=== PATIENT | male | born 1965 ===

== ENCOUNTER 2018-09-22 17:40 | Inpatient (IN) | payer OTHER ==
[2018-09-22 18:49] LABS: BASO # 0.1 K/uL (0.0-0.2); BASO % 1.1 % (0.0-2.0); EOS % 0.2 % (0.0-4.0); HEMOGLOBIN 12.8 g/dL (12.0-18.0); LYMPH # 1.2 K/uL (1.0-4.3); LYMPH % 24.8 % (20.0-40.0); MEAN CELL VOLUME 88.7 fl (80.0-94.0); MEAN CORPUSCULAR HEMOGLOBIN 30.1 pg (27.0-31.0); MEAN PLATELET VOLUME 7.1 fl (7.2-11.7); MONO # 0.4 K/uL (0.0-0.8); MONO % 7.7 % (0.0-10.0); NEUT # 3.2 K/uL (1.8-7.0); NEUT % 66.2 % (50.0-75.0); NRBC % 0.2 % (0.0-0.0); RBC 4.24 Mil/uL (4.40-5.90); WHITE BLOOD COUNT 4.8 K/uL (4.8-10.8)
[2018-09-22 19:16] LABS: ACETAMINOPHEN < 10.0 ug/ml (10.0-30.0); SALICYLATE < 1.0 mg/dl
[2018-09-22 19:18] LABS: ALB/GLOB RATIO 1.1 (1.0-2.1); ALBUMIN 4.1 g/dL (3.5-5.0); ALT/SGPT 64 U/L (21-72); AST/SGOT 68 U/L (17-59); BLOOD UREA NITROGEN 7 mg/dl (9-20); CALCIUM 8.9 mg/dL (8.4-10.2); GFR NON-AFRICAN AMERICAN > 60
[2018-09-22] MEDS ORDERED: Sodium Chloride 0.9% 1,000 ML IV SCH (19:30)
--- NOTE | 2018-09-22 19:56 | ED PDOC ---
HPI: Psych/Substance Abuse Time Seen by Provider: 09/22/18 17:56 Chief Complaint (Nursing): Psychiatric Evaluation Chief Complaint (Provider): Psychiatric Evaluation ED Caveat: Intoxicated History Per: Patient, EMS History/Exam Limitations: intoxication Onset/Duration Of Symptoms: Hrs Current Symptoms Are (Timing): Still Present Additional Complaint(s): Patient is a 53 y/o male with a PMHx of depression who was brought in by EMS for a suicidal attempt. EMS reported according to the family patient took four unknown diuretic pills and drank a lot. Patient states he has been depressed since his left him. Patient states he drank a lot today. Patient noted he takes Trazodone for his depression. Pt reports doing all this to kill himself. Patient is a poor historian due to intoxication. PCP: None Provided Past Medical History Reviewed: Historical Data, Nursing Documentation, Vital Signs Vital Signs: Last Vital Signs Temp 98.8 F 09/22/18 17:43 Pulse 109 H 09/22/18 17:43 Resp 16 09/22/18 17:43 BP 124/76 09/22/18 17:43 Pulse Ox 96 09/22/18 17:43 - Medical History PMH: Depression Denies: Diabetes, Hepatitis, HIV, HTN, Seizures, Sexually Transmitted Disease - Surgical History Surgical History: No Surg Hx - Family History Family History: States: Unknown Family Hx - Social History Alcohol: > 2 Drinks/Day - Allergies Allergies/Adverse Reactions: Allergies Allergy/AdvReac Type Severity Reaction Status Date / Time No Known Allergies Allergy Verified 09/07/17 12:14 Review of Systems ROS Statement: Except As Marked, All Systems Reviewed And Found Negative (poor h istorian due to intoxication) Psych: Positive for: Suicidal ideation. Negative for: Other (homicidal ideation) Physical Exam - Reviewed Nursing Documentation Reviewed: Yes Vital Signs Reviewed: Yes - Physical Exam Comments: GENERAL APPEARANCE: Patient is drowsy and intoxicated; oriented to person. SKIN: Warm, dry; (-) cyanosis HEAD: (-) scalp swelling, (-) scalp tenderness. EYES: (-) conjunctival pallor, (-) scleral icterus, (-) nystagmus. ENMT: Mucous membranes moist. Airway patent: (-) stridor. NECK: (-) tenderness, (-) stiffness, (-) lymphadenopathy. HEART AND CARDIOVASCULAR: (-) irregularity; (-) murmur, (-) gallop. CHEST AND RESPIRATORY: (-) rales, (-) rhonchi, (-) wheezes; breath sounds equal. ABDOMEN: Soft, (-) distention, (-) tenderness, (-) guarding. NEURO AND PSYCH: unable to fully assess patient Affect: responsive to verbal stimuli. flat dumper: Intact. Pupils equal and reactive; EOMI; (-) facial asymmetry; tongue and uvula midline. Strength and DTRs symmetric. - Laboratory Results Result Diagrams: 09/22/18 18:41 09/22/18 18:41 Lab Results: Total Bilirubin 0.5 mg/dl (0.2-1.3) 09/22/18 18:41 AST 68 U/L (17-59) H D 09/22/18 18:41 ALT 64 U/L (21-72) 09/22/18 18:41 Alkaline Phosphatase 76 U/L (38-126) 09/22/18 18:41 Total Protein 7.9 G/DL (6.3-8.2) 09/22/18 18:41 Albumin 4.1 g/dL (3.5-5.0) 09/22/18 18:41 Globulin 3.8 gm/dL (2.2-3.9) 09/22/18 18:41 Albumin/Globulin Ratio 1.1 (1.0-2.1) 09/22/18 18:41 - ECG ECG Rhythm: Positive for: Normal QRS, Normal ST Segment, Sinus Rhythm. Negative for: ST/T Changes (acute) Rate: 74 O2 Sat by Pulse Oximetry: 96 (RA) Pulse Ox Interpretation: Normal Medical Decision Making Medical Decision Making: Time: 1805 Impression: Depression and Suicidal Ideation Plan: EKG Acetaminophen Alcohol Serum (x2) CMP Drug Screen, Urine Salicylate CBC Glucose, POC IV Fluids Prescription Clerk Lenses IV Insertion 1:1 Observation Glucose, Blood, POC UA Time: [address] Garcia of poison control. Will continue cardiac monitoring. Will redo EKG. Continue IV fluids. If patient is chronic alcoholic will consider reevaluation. Patient will be prescribed Thiamine and Vitamins. Currently patient still appears drowsy and is responsive to verbal stimuli. Time: 1949 Patient's alcohol level is less than 10. Does not match presentation. Will redraw. Time: 2039 Patient's repeat alcohol level is less than 10. Pending urine and crisis evaluation. 21:45 on re eval pt is awake and alert, watching TV, ambulated to bathroom, unable to urinate, given water to drink, tolerating well, pt continues to state he drank a lot today, he also adds he did cocaine and morphine that he got from the streets, he is oriented to person and time 23:20 case endorsed to GRIFFIN Estrada, pending crisis eval and dispo Scribe Attestation: Documented by Renaldo Chin, acting as a scribe for Amor Vasquez PA-C Provider Scribe Attestation: All medical record entries made by the Scribe were at my direction and personally dictated by me. I have reviewed the chart and agree that the record accurately reflects my personal performance of the history, physical exam, medical decision making, and the department course for this patient. I have also personally directed, reviewed, and agree with the discharge instructions and disposition. Disposition - Clinical Impression Clinical Impression: Depression - Patient ED Disposition Is Patient to be Admitted: Transfer of Care (case endorsed to GRIFFIN Estrada, pending crisis eval and dispo) - Disposition Disposition: Transfer of Care (case endorsed to GRIFFIN Estrada, pending crisis eval and dispo) Disposition Time: 23:23 Condition: STABLE Forms: [employer] Connect ([place]) - POA Present On Arrival: None
[2018-09-22 22:51] LABS: URINE AMORPHOUS SEDIMENT OCC /ul (<OCC); URINE BACTERIA OCC (<OCC); URINE BILIRUBIN NEGATIVE (NEGATIVE); URINE BLOOD NEGATIVE (NEGATIVE); URINE CLARITY CLOUDY (Clear); URINE COLOR YELLOW (YELLOW); URINE GLUCOSE (UA) NEG (NEGATIVE); URINE LEUKOCYTE ESTERASE NEG Leu/uL (Negative); URINE PROTEIN NEGATIVE (NEGATIVE); URINE UROBILINOGEN 0.2-1.0 mg/dL (0.2-1.0)
[2018-09-22 23:08] LABS: OPIATES, UR NEGATIVE (NEGATIVE)
[2018-09-22 23:16] LABS: BARBITURATES, UR NEGATIVE (NEGATIVE); BENZODIAZEPINES, UR POSITIVE (NEGATIVE); PHENCYCLIDINE, UR NEGATIVE (NEGATIVE)
--- NOTE | 2018-09-23 00:44 | ED PDOC ---
- Laboratory Results Result Diagrams: 09/22/18 18:41 09/22/18 18:41 Lab Results: Total Bilirubin 0.5 mg/dl (0.2-1.3) 09/22/18 18:41 AST 68 U/L (17-59) H D 09/22/18 18:41 ALT 64 U/L (21-72) 09/22/18 18:41 Alkaline Phosphatase 76 U/L (38-126) 09/22/18 18:41 Total Protein 7.9 G/DL (6.3-8.2) 09/22/18 18:41 Albumin 4.1 g/dL (3.5-5.0) 09/22/18 18:41 Globulin 3.8 gm/dL (2.2-3.9) 09/22/18 18:41 Albumin/Globulin Ratio 1.1 (1.0-2.1) 09/22/18 18:41 Urine Color Yellow (YELLOW) 09/22/18 22:41 Urine Clarity Cloudy (Clear) 09/22/18 22:41 Urine pH 7.0 (5.0-8.0) 09/22/18 22:41 Ur Specific [place] 1.013 (1.003-1.030) 09/22/18 22:41 Urine Protein Negative mg/dL (NEGATIVE) 09/22/18 22:41 Urine Glucose (UA) Neg mg/dL (NEGATIVE) 09/22/18 22:41 Urine Ketones 20 mg/dL (NEGATIVE) 09/22/18 22:41 Urine Blood Negative (NEGATIVE) 09/22/18 22:41 Urine Nitrate Negative (NEGATIVE) 09/22/18 22:41 Urine Bilirubin Negative (NEGATIVE) 09/22/18 22:41 Urine Urobilinogen 0.2-1.0 mg/dL (0.2-1.0) 09/22/18 22:41 Ur Leukocyte Esterase Neg Esequiel/uL (Negative) 09/22/18 22:41 Urine RBC (Auto) 2 /hpf (0-3) 09/22/18 22:41 Urine Microscopic WBC 4 /hpf (0-5) 09/22/18 22:41 Amorphous Sediment Occ /ul (<OCC) H 09/22/18 22:41 Urine Bacteria Occ (<OCC) H 09/22/18 22:41 - ECG O2 Sat by Pulse Oximetry: 96 (RA) - Progress ED Course And Treament: Case endorsed to teletypewriter operator from Jennifer Eaton PA-C pending crisis eval 1:00 Patient awake, alert, oriented x3. Resting comfortably. Vitals stable on monitor 2:30 Patient awake, alert, oriented x3. Resting comfortably. 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 Negron patient to be admitted Medical Decision Making Medical Decision Making: Patient medically stable for psych admission Disposition - Clinical Impression Clinical Impression: Depression - POA Present On Arrival: None - Disposition Disposition: Admitted as In-Patient Disposition Time: 02:45 Condition: STABLE
[2018-09-23] MEDS ORDERED: DiphenhydrAMINE 50 mg/ml Inj IM PRN (05:26)
[2018-09-23] MEDS ORDERED: Magnesium Hydroxide Susp 30 ml UD PO PRN (05:26)
[2018-09-23] MEDS ORDERED: Alum-Mag Hydrox-Simethicone Susp (30 mL) PO PRN (05:26)
--- NOTE | 2018-09-23 05:47 | PCM.BM ---
<Obinna Soria - Last Filed: 09/23/18 05:45> Treatment Plan Problems - Problems identified on initial assessmt Self Harm Date Initiated: 09/23/18 Time Initiated: 05:45 Assessment reference: NA Status: Active Altered Sleep Patterns Date Initiated: 09/23/18 Time Initiated: 05:45 Assessment reference: NA Status: Active Ineffective Coping Date Initiated: 09/23/18 Time Initiated: 05:46 Assessment reference: NA Status: Active Treatment assets and liabiliti Patient Assests: cooperative, ADL independent, physically healthy, good support system, negotiates basic needs, cognitively intact Patient Liabilities: live alone, financial problems, poor support system, language/speech <Ashlie Sanchez - Last Filed: 09/23/18 10:49> - Diagnosis (1) Alcohol abuse Status: Acute Interventions: start antidepressant/ remeron 09/23/18 10:51 (2) Depression Status: Acute Interventions: motivational therapy, referral to rehab 09/23/18 10:51 <Viry Chaudhary - Last Filed: 09/29/18 15:07> Treatment assets and liabiliti Patient Assests: adapts well, cooperative, educated (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 ), insightful, motivated, resourceful, self-reliant, ADL independent, good support system (Pt. reports having a circumstantially supportive relationship with sister who resides in [place] and with who pt. has frequent communication with. Pt. reports majority of family/friends reside out of state. Pt. reports having a friend in the community who he can rely on. ), good past tx response (Pt. maintained sobriety for 20+ years prior to relapse.), good interpersonal skills Patient Liabilities: live alone, financial problems (t. reports currently being unemployed secondary to decompensated mental health and relapse.), relationship conflicts (Pt. reports being x2 years and having had little to no communication with children since.), substance abuse (Pt. reports significant hx of ETOH/marijuana abuse since age 18. Pt. reports relapsing 2 years ago (following divorce) after maintaining sobriety for 20+ years. Pt. reports completing detox 1 year ago. Pt. reports involvement in 12 step program.) Family Contact Family involvement: Famliy/SO not involved Family contact: Family has been contacted by patient, Patient declines to allow family contact at present - Goals for Treatment Patient goals for treatment: Patient to continue stabilization on 3NP through medication management and group/supportive therapy to address sxs of depression as exhibited by restlessness, feelings of hopelessness and worthlessness, and eliminate SI. Patient to be encouraged to attend groups regularly to promote self-awareness, sobriety, and improve insight, compliance, coping skills and self-esteem. Patient to be provided with referral for appropriate level of aftercare to reduce risk of future hospitalizations and ensure safety in the community. Discharge/Continuing Care - Education Needs Education Needs: Patient Medication, Patient Diagnosis/Disease Process, Patient Coping Skills, Patient Community resources, Patient Aftercare Safety Plan - Discharge Discharge Criteria: Tolerates medication w/o severe side effects, Free of Suicidal thoughts, Normal sleep pattern, Ability to care for self, No longer exhibiting s/s of withdrawal Discharge to:: Home, Other ([facility]12 Step Program) - Treatment Team Participation Patient/Family/SO Statement: 09/29/18 15:07 Patient attended tx team this morning to discuss progress on 3NP and anticipated discharge of 09/29. Pt. presented with significantly brighter affect than upon admission. Pt. presented as future-oriented and discharge focused. Pt. expressed motivation for tx and intentions to adhere to tx team recommendations that pt. complete 90 meetings in 90 days to strengthen foundation within 12 step program to assist with maintaining sobriety. Pt. reported feelings completely different than upon admission. Pt. reported improvement in depression as exhibited by decrease in social withdrawal, elimination of SI, and increase in energy/motivation/ hope for the future. Pt. identified abundance of family support as source of encouragement. No harmful bxs noted. Discussed with Family/SO: No Was Patient/Family/SO present at Treatment Team Meeting: Yes
--- NOTE | 2018-09-23 08:13 | CARD ---
APPROVED REPORT Date of service: 09/22/2018 EKG Measurement Heart [id number] <Conclusion> Normal sinus rhythm Normal ECG
--- NOTE | 2018-09-23 13:14 | PCM.PSYCH ---
Initial Psychiatric Evaluation - Initial Psychiatric Evaluation Type of Admission: Voluntary Legal Status: Capacity Chief Complaint (in patient's own words): I have nothing to live for History of Present Illness and Precipitating Events: pt is 53 ys old male with previous diagnosis of depression and alcohol dependence brought to ER by EMS after suicidal attempt by overdose on alcohol and robitussin pt reported has been increasingly depressed for past two years due to going through divorce and not being able to see his children, pt relapsed on alcohol after 20ys of abstinence using daily which resulted in loosing his job two months ago, reported feeling more depressed due to financial difficulties and lack of social support, on the day he presented to ER pt reported feeling his life is worthless and attempted suicide by overdose on OTC medications with alcohol pt reports poor sleep with early insomnia, poor appetite, increased anxiety, feeling hopeless and helpless, continues to have passive suicidal ideation without active plan on the unit , denied perceptual disturbances Current Medications: Active Medications Generic Name Dose Route Start Last Admin Trade Name Freq PRN Reason Stop Dose Admin Acetaminophen 650 mg 09/23/18 05:26 09/23/18 08:37 Tylenol 325mg Tab PO 650 mg Q4 PRN Administration pain level 4-7 Al Hydrox/Mg Hydrox/Simethicone 30 ml 09/23/18 05:26 Maalox Plus 30 Ml PO Q4 PRN Dyspepsia Chlordiazepoxide 10 mg 09/23/18 13:00 09/23/18 12:42 Librium PO 10 mg TID TAMI Administration Diphenhydramine HCl 50 mg 09/23/18 05:26 Benadryl IM Q6 PRN Extrapyramidal S/S Unable PO Diphenhydramine HCl 50 mg 09/23/18 05:26 Benadryl PO Q6 PRN Extrapyramidal Symptoms Diphenhydramine HCl 50 mg 09/23/18 05:29 Benadryl PO HS PRN Sleep Gabapentin 100 mg 09/23/18 13:00 09/23/18 12:42 Neurontin PO 100 mg TID TAMI Administration Haloperidol 5 mg 09/23/18 05:26 Haldol PO Q4 PRN Agitation Haloperidol Lactate 5 mg 09/23/18 05:26 Haldol IM Q4 PRN Agitation, Unable to Take PO Ibuprofen 600 mg 09/23/18 12:52 Motrin Tab PO Q8 PRN Pain, moderate (4-7) Lorazepam 2 mg 09/23/18 05:26 Ativan IM Q6H PRN Anxiety/Agitation,Unable PO Lorazepam 1 mg 09/23/18 05:26 09/23/18 10:59 Ativan PO 1 mg Q6H PRN Administration Anxiety/Agitation Magnesium Hydroxide 30 ml 09/23/18 05:26 Milk Of Magnesia PO HS PRN Constipation Mirtazapine 7.5 mg 09/23/18 22:00 Remeron PO HS TAMI Past Psychiatric History - Past Psychiatric History Explanation of prior treatment: hx of detox and one hospitalization at [facility] pt non compliant History of ETOH/Drug Use: hx of alcohol and cannabis abuse History of Family Illness: uncle hx of schizophrenia Pertinent Medical Hx (Current Medical&Sleep Prob, Allergies): Allergies Allergy/AdvReac Type Severity Reaction Status Date / Time No Known Allergies Allergy Verified 09/07/17 12:14 Mental Status Examination - Personal Presentation Personal Presentation: Looks older than stated age - Affect Affect: Constricted, Depressed - Motor Activity Motor Activity: Psychomotor Retardation - Reliability in Providing Information Reliability in Providing Information: Fair - Speech Speech: Relevant - Mood Mood: Depressed, Anxious - Formal Thought Process Formal Thought Process: Circumstantial - Obsessions/Compulsions Obsessions: No Compulsions: No - Cognitive Functions Orientation: Person, Place, Situation Sensorium: Alert Attention/Concentration: Attentive Abstract Thinking: [place] Judgement: Imparied, as evidence by: Poor judgement, Imparied, as evidence by: Lack of insight into illness - Risk Risk: Suicidal, Withdrawal, Diminished functioning - Strength & Assets Inventory Strength & Assets Inventory: Employment history - Limitations Additional comments: poor social support DSM 5 DX - DSM 5 DSM 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
--- NOTE | 2018-09-23 15:15 | CP.PCM.CON ---
History of Present Illness - History of Present Illness History of Present Illness: Reason for consult: per hospital protocol HPI: 53 year old male with PMH depression admitted for SI attempt by overdose with alcohol. Patient is stable, has no complaints at this time. ROS: per HPI all other systems reviewed and negative Past Patient History - Past Social History Alcohol: > 2 Drinks/Day - CARDIAC Hx Cardiac Disorders: No Hx Hypertension: No - PULMONARY Hx Respiratory Disorders: No Hx Tuberculosis: No - NEUROLOGICAL Hx Neurological Disorder: No HX Cerebrovascular Accident: No Hx Seizures: No - HEENT Hx HEENT Problems: No - RENAL Hx Chronic Kidney Disease: No - ENDOCRINE/METABOLIC Hx Endocrine Disorders: No - HEMATOLOGICAL/ONCOLOGICAL Hx Cancer: No Hx Human Immunodeficiency Virus (HIV): No - INTEGUMENTARY Hx Dermatological Problems: No - MUSCULOSKELETAL/RHEUMATOLOGICAL Other/Comment: hx. of back surgery and bilateral knee surgery - GASTROINTESTINAL Hx Gastrointestinal Disorders: No - GENITOURINARY/GYNECOLOGICAL Hx Genitourinary Disorders: No Hx Sexually Transmitted Disorders: No - PSYCHIATRIC Hx Anxiety: Yes Hx Depression: Yes - SURGICAL HISTORY Hx Surgeries: (Denies) Hx Appendectomy: Yes (2 weeks ago) - ANESTHESIA Hx Anesthesia: Yes Hx Anesthesia Reactions: No Has any member of the family had a problem w/ anesthesia?: No Meds Allergies/Adverse Reactions: Allergies Allergy/AdvReac Type Severity Reaction Status Date / Time No Known Allergies Allergy Verified 09/07/17 12:14 - Medications Medications: Current Medications Acetaminophen (Tylenol 325mg Tab) 650 mg PO Q4 PRN PRN Reason: pain level 4-7 Last Admin: 09/23/18 08:37 Dose: 650 mg Al Hydrox/Mg Hydrox/Simethicone (Maalox Plus 30 Ml) 30 ml PO Q4 PRN PRN Reason: Dyspepsia Last Admin: 09/23/18 14:44 Dose: 30 ml Chlordiazepoxide (Librium) 10 mg PO TID TAMI Last Admin: 09/23/18 12:42 Dose: 10 mg Diphenhydramine HCl (Benadryl) 50 mg IM Q6 PRN PRN Reason: Extrapyramidal S/S Unable PO Diphenhydramine HCl (Benadryl) 50 mg PO Q6 PRN PRN Reason: Extrapyramidal Symptoms Diphenhydramine HCl (Benadryl) 50 mg PO HS PRN PRN Reason: Sleep Gabapentin (Neurontin) 100 mg PO TID [facility] Last Admin: 09/23/18 12:42 Dose: 100 mg Haloperidol (Haldol) 5 mg PO Q4 PRN PRN Reason: Agitation Haloperidol Lactate (Haldol) 5 mg IM Q4 PRN PRN Reason: Agitation, Unable to Take PO Ibuprofen (Motrin Tab) 600 mg PO Q8 PRN PRN Reason: Pain, moderate (4-7) Lorazepam (Ativan) 2 mg IM Q6H PRN PRN Reason: Anxiety/Agitation,Unable PO Lorazepam (Ativan) 1 mg PO Q6H PRN PRN Reason: Anxiety/Agitation Last Admin: 09/23/18 10:59 Dose: 1 mg Magnesium Hydroxide (Milk Of Magnesia) 30 ml PO HS PRN PRN Reason: Constipation Mirtazapine (Remeron) 7.5 mg PO HS TAMI Physical Exam - Constitutional Additional comments: Vitals Reviewed GEN: WDWN, alert, cooperative HEENT: NCAT, PERRL, EOMI HEART: RRR, +S1S2, NO MRG LUNG: CTAB, NO WRR ABD: soft, NT, ND, No HSM, No masses EXT: normal pedal pulses NEURO: awake, alert SKIN: warm, dry PSYCH: normal mood, normal affect Results - Vital Signs Recent Vital Signs: Last Vital Signs Temp 97.5 F L 09/23/18 09:21 Pulse 74 09/23/18 09:21 Resp 18 09/23/18 09:21 BP 123/87 09/23/18 09:21 Pulse Ox 98 09/23/18 05:15 - Labs Result Diagrams: 09/22/18 18:41 09/22/18 18:41 Labs: Laboratory Results - last 24 hr 09/22/18 09/22/18 09/22/18 18:41 18:41 18:41 WBC 4.8 RBC 4.24 L Hgb 12.8 D Hct 37.6 MCV 88.7 D MCH 30.1 MCHC 34.0 RDW 17.0 H Plt Count 410 H D MPV 7.1 L Neut % (Auto) 66.2 Lymph % (Auto) 24.8 [place] % (Auto) 7.7 Eos % (Auto) 0.2 Baso % (Auto) 1.1 Neut # (Auto) 3.2 Lymph # (Auto) 1.2 [place] # (Auto) 0.4 Eos # (Auto) 0.0 Baso # (Auto) 0.1 Sodium 142 Potassium 3.5 L Chloride 104 Carbon Dioxide 26 Anion Gap 16 BUN 7 L Creatinine 0.7 L Est GFR ( Amer) > 60 Est GFR (Non-Af Amer) > 60 POC Glucose (mg/dL) Random Glucose 110 Calcium 8.9 Total Bilirubin 0.5 AST 68 H D ALT 64 Alkaline Phosphatase 76 Total Protein 7.9 Albumin 4.1 Globulin 3.8 Albumin/Globulin Ratio 1.1 Urine Color Urine Clarity Urine pH Ur Specific [place] Urine Protein Urine Glucose (UA) Urine Ketones Urine Blood Urine Nitrate Urine Bilirubin Urine Urobilinogen Ur Leukocyte Esterase Urine RBC (Auto) Urine Microscopic WBC Amorphous Sediment Urine Bacteria Salicylates < 1.0 Urine Opiates Screen Urine Methadone Screen Acetaminophen < 10.0 L Ur Barbiturates Screen Ur Phencyclidine Scrn Ur Amphetamines Screen U Benzodiazepines Scrn U Oth Cocaine Metabols U Cannabinoids Screen Alcohol, Quantitative < 10 09/22/18 09/22/18 09/22/18 18:46 19:54 22:41 WBC RBC Hgb Hct MCV MCH MCHC RDW Plt Count MPV Neut % (Auto) Lymph % (Auto) [place] % (Auto) Eos % (Auto) Baso % (Auto) Neut # (Auto) Lymph # (Auto) [place] # (Auto) Eos # (Auto) Baso # (Auto) Sodium Potassium Chloride Carbon Dioxide Anion Gap BUN Creatinine Est GFR ( Amer) Est GFR (Non-Af Amer) POC Glucose (mg/dL) 112 H Random Glucose Calcium Total Bilirubin AST ALT Alkaline Phosphatase Total Protein Albumin Globulin Albumin/Globulin Ratio Urine Color Urine Clarity Urine pH Ur Specific [place] Urine Protein Urine Glucose (UA) Urine Ketones Urine Blood Urine Nitrate Urine Bilirubin Urine Urobilinogen Ur Leukocyte Esterase Urine RBC (Auto) Urine Microscopic WBC Amorphous Sediment Urine Bacteria Salicylates Urine Opiates Screen Negative Urine Methadone Screen Negative Acetaminophen Ur Barbiturates Screen Negative Ur Phencyclidine Scrn Negative Ur Amphetamines Screen Negative U Benzodiazepines Scrn Positive U Oth Cocaine Metabols Negative U Cannabinoids Screen Negative Alcohol, Quantitative < 10 09/22/18 22:41 WBC RBC Hgb Hct MCV MCH MCHC RDW Plt Count MPV Neut % (Auto) Lymph % (Auto) [place] % (Auto) Eos % (Auto) Baso % (Auto) Neut # (Auto) Lymph # (Auto) [place] # (Auto) Eos # (Auto) Baso # (Auto) Sodium Potassium Chloride Carbon Dioxide Anion Gap BUN Creatinine Est GFR ( Amer) Est GFR (Non-Af Amer) POC Glucose (mg/dL) Random Glucose Calcium Total Bilirubin AST ALT Alkaline Phosphatase Total Protein Albumin Globulin Albumin/Globulin Ratio Urine Color Yellow Urine Clarity Cloudy Urine pH 7.0 Ur Specific [place] 1.013 Urine Protein Negative Urine Glucose (UA) Neg Urine Ketones 20 Urine Blood Negative Urine Nitrate Negative Urine Bilirubin Negative Urine Urobilinogen 0.2-1.0 Ur Leukocyte Esterase Neg Urine RBC (Auto) 2 Urine Microscopic WBC 4 Amorphous Sediment Occ H Urine Bacteria Occ H Salicylates Urine Opiates Screen Urine Methadone Screen Acetaminophen Ur Barbiturates Screen Ur Phencyclidine Scrn Ur Amphetamines Screen U Benzodiazepines Scrn U Oth Cocaine Metabols U Cannabinoids Screen Alcohol, Quantitative Assessment & Plan - Assessment and Plan (Free Text) Plan: 53 year old male with PMH depression admitted for SI attempt by overdose with alcohol. Patient is stable, has no complaints at this time. Depression management per psych
--- NOTE | 2018-09-24 18:37 | PCM.PYCHPN ---
Psychiatric Progress Note - Psychiatric Progress Note Patient seen today, length of contact: chart reviewed case discussed with team Patient Chief Complaint: was feeling nervous had been drinking feeling depressed -reported had been sober for 20 years, recent beginning of divorce precedings. staff report adherent with medications. pt denies s/s etoh w/d. Problems Identified/Issues Discussed: alteration in mood alteration in coping alteration in self care alteration in safety Medical Problems: per chart Diagnostic Results: per psychiatry per medicine per nursing per social work per recreational therapy DSM 5 Symptoms Update: denies s/s etoh w/d some improvement mood Medication Change: Yes (decreased librium to 10mg po bid) Medical Record Reviewed: Yes Consults ordered or reviewed: pt seen by hospitalist Mental Status Examination - Cognitive Function Orientation: Person, Place, Situation Attention: WNL Concentration: WNL Association: WN Fund of Knowledge: [facility] Decription of patient's judgement and insights: impaired - Mood Mood: Depressed, Anxious Additional comments: somewhat less - Affect Affect: Constricted, Depressed - Formal Thought Process Formal Thought Process: Circumstantial - Homicidal Ideation Homicidal Ideation: No Goal/Treatment Plan - Goal/Treatment Plan Progress Toward Problem(s) and Goals/Treatment Plan: inpt mileu vital signs and clinical assessment per protocol and per clinical status decrease librium to 10mg po bid (etoh taper to prevent w/d etoh) will increase mirtazepine to 15mg po hs (therapeutic dose ) adjust other medications per clinical status discharge planning in progress Estimated Date of D/C: 10/08/18 - Smoking Cessation Smoking Cessation Initiated: No Reason for not providing: defers
--- NOTE | 2018-09-25 10:08 | PCM.PYCHPN ---
Psychiatric Progress Note - Psychiatric Progress Note Patient seen today, length of contact: Pt evaluated, case discussed w/ team, chart reviewed Patient Chief Complaint: Depression Problems Identified/Issues Discussed: Patient continues to report feeling depressed w/ sleep disturbances. He was tearful when discussing his feeling of hopelessness, divorce and lack of a relationship with his children. We discussed his recent relapse on alcohol. No current signs/symptoms of ETOH withdrawal. He denies acute suicidal ideation/plan/intent. Medication Change: Yes (Taper Librium) Medical Record Reviewed: Yes Consults ordered or reviewed: Medicine consult Mental Status Examination - Cognitive Function Orientation: Person, Place, Situation, Time Memory: Intact Attention: WNL Concentration: WNL Association: WNL Fund of Knowledge: WN Decription of patient's judgement and insights: Improving I/J - Mood Mood: Depressed, Anxious - Affect Affect: Constricted, Depressed - Speech Speech: Appropriate - Formal Thought Process Formal Thought Process: No Impairment Psychotic Thoughts and Behaviors: No AH/VH/paranoia/delusions - Suicidal Ideation Suicidal Ideation: No - Homicidal Ideation Homicidal Ideation: No Goal/Treatment Plan - Goal/Treatment Plan Need for Continued Stay: Remain at risks for inpatient hospitalization, Severe depression anxiety Progress Toward Problem(s) and Goals/Treatment Plan: Major Depressive Disorder; Alcohol Use Disorder -Continue Remeron -Taper Librium daily; will continue to monitor for signs/symptoms of ETOH withdrawal -Medicine consult -Individual and group therapy -Psychoeducation -Disposition planning
--- NOTE | 2018-09-26 08:35 | PCM.PYCHPN ---
Psychiatric Progress Note - Psychiatric Progress Note Patient seen today, length of contact: Pt evaluated, case discussed w/ team, chart reviewed Patient Chief Complaint: Depression Problems Identified/Issues Discussed: Patient continues to report feeling depressed and anxious w/ sleep disturbances. No current signs/symptoms of ETOH withdrawal. He denies acute suicidal ideation/plan/intent. Medication Change: Yes (Taper Librium) Medical Record Reviewed: Yes Consults ordered or reviewed: Medicine consult Mental Status Examination - Cognitive Function Orientation: Person, Place, Situation, Time Memory: Intact Attention: WNL Concentration: WNL Association: WNL Fund of Knowledge: WN Decription of patient's judgement and insights: Improving I/J - Mood Mood: Depressed, Anxious - Affect Affect: Constricted, Depressed - Speech Speech: Appropriate - Formal Thought Process Formal Thought Process: No Impairment Psychotic Thoughts and Behaviors: No AH/VH/paranoia/delusions - Suicidal Ideation Suicidal Ideation: No - Homicidal Ideation Homicidal Ideation: No Goal/Treatment Plan - Goal/Treatment Plan Need for Continued Stay: Remain at risks for inpatient hospitalization, Severe depression anxiety Progress Toward Problem(s) and Goals/Treatment Plan: Major Depressive Disorder; Alcohol Use Disorder -Continue Remeron -Taper Librium daily; will continue to monitor for signs/symptoms of ETOH withdrawal -Medicine consult -Individual and group therapy -Psychoeducation -Disposition planning
--- NOTE | 2018-09-27 19:01 | PCM.PYCHPN ---
Psychiatric Progress Note - Psychiatric Progress Note Patient seen today, length of contact: Pt evaluated, case discussed w/ team, chart reviewed Patient Chief Complaint: feeling less depressed sleep somewhat improving denies s/s etoh w/d. staff report pt is rs adherent seen about in unit. Problems Identified/Issues Discussed: alteration in mood alteration in coping alteration in self care alteration in safety Medical Problems: per chart Diagnostic Results: per psychiatry per medicine per nursing per social work per recreational therapy DSM 5 Symptoms Update: less depressed, no s/s etoh w/d, some improvement with sleep Medication Change: No Medical Record Reviewed: Yes Consults ordered or reviewed: pt seen by hospitalist Mental Status Examination - Cognitive Function Orientation: Person, Place, Situation, Time Memory: Intact Attention: WNL Concentration: WNL Association: WNL Fund of Knowledge: WNL Decription of patient's judgement and insights: improving - Mood Mood: Depressed Additional comments: less depressed - Affect Affect: Constricted, Depressed - Speech Speech: Appropriate - Formal Thought Process Formal Thought Process: No Impairment - Suicidal Ideation Suicidal Ideation: No - Homicidal Ideation Homicidal Ideation: No Goal/Treatment Plan - Goal/Treatment Plan Need for Continued Stay: Remain at risks for inpatient hospitalization, Severe depression anxiety Progress Toward Problem(s) and Goals/Treatment Plan: inpt mileu vital signs and clinical assessment per protocol and per clinical status adjust other medications per clinical status discharge planning in progress Estimated Date of D/C: 10/08/18 - Smoking Cessation Smoking Cessation Initiated: No Reason for not providing: pt defers
[2018-09-28 04:32] VITALS: O2SAT 96
--- NOTE | 2018-09-28 15:14 | PCM.PYCHPN ---
Psychiatric Progress Note - Psychiatric Progress Note Patient seen today, length of contact: Pt evaluated, case discussed w/ team, chart reviewed Patient Chief Complaint: I am anxious about facing the outside Problems Identified/Issues Discussed: pt evaluated, reported decreased sleep last night related that to increased anxiety about finding a job and being able to support self, CBT provided, discussed with patient coping skills with anxiety also discussed increasing dose of neurontin, pt observed interacting with peers, attending groups, no changes in appetite denied suicidal or homicidal ideation, denied perceptual disturbances Medical Problems: hx of detox and one hospitalization at [facility] pt non compliant DSM 5 Symptoms Update: depression alcohol abuse Medication Change: Yes (increase neurontin) Medical Record Reviewed: Yes Mental Status Examination - Cognitive Function Orientation: Person, Place, Situation, Time Memory: Intact Attention: WNL Concentration: WNL Association: WNL Fund of Knowledge: WNL - Mood Mood: Depressed - Affect Affect: Constricted, Depressed - Speech Speech: Appropriate - Formal Thought Process Formal Thought Process: No Impairment Psychotic Thoughts and Behaviors: pt denied psychotic symptoms - Suicidal Ideation Suicidal Ideation: No - Homicidal Ideation Homicidal Ideation: No Goal/Treatment Plan - Goal/Treatment Plan Need for Continued Stay: Remain at risks for inpatient hospitalization, Severe depression anxiety Progress Toward Problem(s) and Goals/Treatment Plan: increase neurontin 200mg tid continue with remeron cbt group and supportive therapy Estimated Date of D/C: 10/08/18
[2018-09-29 09:20] VITALS: BP 109/74; PULSE 80; RESP 19; TEMP 98.9
--- NOTE | 2018-09-29 12:21 | PCM.PYCHDC ---
Mental Status Examination - Mental Status Examination Orientation: Person, Place, Situation, Time Memory: Intact Mood: Neutral Affect: Broad Speech: Appropriate Attention: WNL Association: WNL Fund of Knowledge: WNL Formal Thought Process: No Impairment Description of patient's judgement and insight: partial insight fair judgment Psychotic Thoughts and Behaviors: pt denied psychotic symptoms Suicidal Ideation: No Current Homicidal Ideation?: No Discharge Summary - Discharge Note Reason for Hospitalization: pt is 53 ys old male with previous diagnosis of depression and alcohol dependence brought to ER by EMS after suicidal attempt by overdose on alcohol and robitussin pt reported has been increasingly depressed for past two years due to going through divorce and not being able to see his children, pt relapsed on alcohol after 20ys of abstinence using daily which resulted in loosing his job two months ago, reported feeling more depressed due to financial difficulties and lack of social support, on the day he presented to ER pt reported feeling his life is worthless and attempted suicide by overdose on OTC medications with alcohol pt reports poor sleep with early insomnia, poor appetite, increased anxiety, feeling hopeless and helpless, continues to have passive suicidal ideation without active plan on the unit , denied perceptual disturbances Consultations:: List each consultation separately and include: 1. Reason for request. 2. Findings. 3. Follow-up Summary of Hospital Course include:: 1. Description of specific treatment plan utilized for patients during their course of treatmen. 2. Summarize the time- course for resolution of acute symptoms and/or regressed behaviors. 3. Describe issues identified and worked on during hospitalization. 4. Describe medication utilized. 5. Describe medical problems identified and treated. 6. Reassessment of suicide risk Summary of Hospital Course: pt on admission presented with depressed mood and affect, increased anxiety pt was placed on librium protocol and monitored for symptoms and signs of alcohol withdrawal pt was started on neurontin for anxiety , placed on remeron for depression CBT cognitive group and motivational therapy provided pt was compliant with treatment , attended groups, no reported side effects of medications on discharge mental status was stable , pt denied any current suicidal or homicidal ideation denied perceptual disturbances - Diagnosis (1) Alcohol abuse Current Visit: Yes Status: Acute (2) Depression Current Visit: Yes Status: Acute - Final Diagnosis (DSM 5) Condition upon Discharge: STABLE DSM 5: major depression recurrent severe without psychotic features alcohol abuse Disposition: HOME/ ROUTINE Prescriptions/Medication Reconciliation: Gabapentin [Neurontin] 200 mg PO TID 30 Days #180 cap Mirtazapine [Remeron] 15 mg PO HS 30 Days #30 tab - Antipsychotic Medications Pt discharged on 2 or more routine antipsychotic medications: No
== END 2018-09-29 15:50 | disposition home or self-care (01) | DRG 430 ==
LOC: H.ER 17:40 → H.ERHOLD 09-23 02:52 → H.PSYCH 09-23 05:23
PROVIDERS: ADMIT Psychiatry & Neurology Psychiatry; ATTEND Psychiatry & Neurology Psychiatry
PROC: GZHZZZZ Group Psychotherapy (ICD-10-PCS; principal; 2018-09-23)
PROC: GZ58ZZZ Individual Psychotherapy, Cognitive-Behavioral (ICD-10-PCS; 2018-09-23)
PROC: HZ52ZZZ Individual Psychotherapy for Substance Abuse Treatment, Cognitive-Behavioral (ICD-10-PCS; 2018-09-23)
DX: F33.2 Major depressive disorder, recurrent severe without psychotic features (principal); F10.229 Alcohol dependence with intoxication, unspecified; R45.851 Suicidal ideations; F41.9 Anxiety disorder, unspecified; Z91.5 Personal history of self-harm; Z91.19 Patient's noncompliance with other medical treatment and regimen; Y90.0 Blood alcohol level of less than 20 mg/100 ml; Z59.8 Other problems related to housing and economic circumstances